=== PATIENT | male | born 1940 | race Caucasian/White ===

== ENCOUNTER 2023-07-15 22:18 | Emergency (ER) | payer MEDICARE, BC ==
[~2023-07-15] VITALS: Ht 177.8 cm; Wt 104.3 kg
[2023-07-15 22:34] LABS: BASOPHILS 0.6 % (0-2); EOSINOPHILS 2.1 % (0-6); HEMATOCRIT 38.2 % (35.0-50.0); HEMOGLOBIN 13.2 g/dL (12.0-18.0); LYMPHOCYTES 21.5 % (24-44); MCH 31.3 (27-36); MCHC 34.5 g/dl (30-36); MCV 90.7 fl (81-99); MONOCYTES 8.3 % (0-12); NEUTROPHILS 67.5 % (39-80); PLATELET COUNT 244 K/uL (140-440); RBC 4.22 M/ul (4.3-5.7); RDW 15.9 (10.5-15.0)
[2023-07-15 22:51] LABS: ALBUMIN 3.6 g/dL (3.4-5.0); ALBUMIN/GLOBULIN RATIO 1.03 (1.1-2.4); ANION GAP 13.8 (7-21); BILIRUBIN, TOTAL 0.3 ng/dL (0.2-1.0); BUN/CREATININE RATIO 16.66 (6.0-28.6); CALCIUM 8.5 mg/dL (8.5-10.1); CREATININE, SERUM 1.2 mg/dL (0.70-1.30); MAGNESIUM 2.2 mg/dL (1.8-2.4); POTASSIUM 3.8 mmol/L (3.5-5.1); PROTEIN, TOTAL 7.1 g/dL (6.4-8.2)
[2023-07-16] MEDS ORDERED: OMEPRAZOLE20 MG PO (00:58)
[2023-07-16 01:14] VITALS: BP 115/61
--- NOTE | 2023-07-16 10:36 | EKG ---
[facility] [address] [facility] [place], [place] [address] Signed Normal sinus rhythm Low voltage QRS Borderline ECG No previous ECGs available Confirmed by BALAJI SANCHEZ MD ([id number]) on 07/16/2023 10:35:54 AM Electronically Signed By: BALAJI SANCHEZ 07/16/23 1036 PATIENT NAME: SUNG CARDENAS Electrocardiogram DATE OF : 44 PHYSICIAN: BALAJI SANCHEZ REPORT #: [id number] REPORT IS CONFIDENTIAL AND NOT TO BE RELEASED WITHOUT AUTHORIZATION
== END 2023-07-16 01:14 | disposition home or self-care (01) ==
LOC: ED 22:18
PROVIDERS: Internal Medicine
DX: K21.9 Gastro-esophageal reflux disease without esophagitis (principal)
CPT/HCPCS: 36415; 71045; 80053; 83690; 83735; 83880; 84484; 85025; 93005; 93010; 96374; 99285-25; G0480